=== PATIENT | female | born 1945 | race Caucasian/White ===

== ENCOUNTER 2022-04-03 12:59 | Outpatient (CLI) | payer MEDICARE | END 2022-04-03 13:00 | disposition home or self-care (01) | LOC: CSHMAMMO 12:59 | PROVIDERS: ATTEND Student in an Organized Health Care Education/Training Program | DX: Z12.31 Encounter for screening mammogram for malignant neoplasm of breast (principal); Z13.820 Encounter for screening for osteoporosis; E28.39 Other primary ovarian failure; M85.89 Other specified disorders of bone density and structure, multiple sites; M81.0 Age-related osteoporosis without current pathological fracture; Z78.0 Asymptomatic menopausal state | CPT/HCPCS: 77063; 77067; 77080 ==